=== PATIENT | female | born 1980 | race American Indian/Alaskan Native ===

== ENCOUNTER → 2017-12-21 | Outpatient (CLI) | payer OTHER ==
[~2017-12-21] MED LIST: GASTROGRAFIN SOLUTION 30ML (Q9963) As Ordered; ISOVUE-370 76% 100ML VIAL (Q9967) As Ordered
== END ==
LOC: M RAD 16:50
DX: R10.9 Unspecified abdominal pain (principal)

== ENCOUNTER → 2018-03-05 | Outpatient (CLI) | payer OTHER ==
[2018-03-05 20:02] LABS: ALBUMIN 3.8 GM/DL (3.2-5.2); ALBUMIN/GLOBULIN RATIO 1.12 (1.00-1.93); ALKALINE PHOSPHATASE 69 U/L (45-117); ALT/SGPT 22 U/L (12-78); AST/SGOT 10 U/L (7-37); BILIRUBIN,DIRECT < 0.1 MG/DL (0.0-0.2); BILIRUBIN,TOTAL 0.3 MG/DL (0.2-1.0); C REACTIVE PROTEIN QUANTITATIV < 0.30 MG/DL (0.00-0.30); TOTAL PROTEIN 7.2 GM/DL (6.4-8.2)
[2018-03-08 09:40] LABS: CONTROL LINE HPYORI INT CTR LINE PRESENT; H PYLORI QUALITATIVE IgG DETECTED (NEGATIVE)
[2018-03-11 10:16] LABS: ANCA-ATYPICAL <1:20 titer (Neg:<1:20); ANTI-SACCHAROMYCES CEREV. IgA <20.0 Units (0.0-24.9); ANTI-SACCHAROMYCES CEREV. IgG <20.0 Units (0.0-24.9); CYTOPLASMIC NEUTROP AB ANCA-C <1:20 titer (Neg:<1:20); H PYLORI SERUM QUANT IGM <9.0 units (0.0-8.9); IGASUB3 60.8 mg/dL (13.4-97.9); IgA SERUM (part of Subclasses) 245 mg/dL (87-352); PERINUCLEAR AB ANCA-P <1:20 titer (Neg:<1:20); TISSUE TRANSGLUTAMINASE IgA <2 U/mL (0-3)
== END ==
LOC: M LAB 16:47
DX: K59.00 Constipation, unspecified (principal)
CPT/HCPCS: 80076

== ENCOUNTER 2018-04-04 08:38 | Emergency (ER) | payer OTHER ==
[2018-04-04] MEDS: FAMOTIDINE 20 MG TAB PO (09:01)
[2018-04-04] MEDS: predniSONE 20 MG TAB PO (09:01)
== END 2018-04-04 09:44 | disposition home or self-care (01) ==
LOC: M ED 08:38
DX: J02.8 Acute pharyngitis due to other specified organisms (principal); M54.2 Cervicalgia; Z79.899 Other long term (current) drug therapy
CPT/HCPCS: 87880

== ENCOUNTER → 2021-03-07 | Outpatient (CLI) | payer OTHER ==
[~2021-03-07] MED LIST changes: +DICL75TA PO; +DIPH25CA32 PO; -GASTROGRAFIN SOLUTION 30ML (Q9963) As Ordered; -ISOVUE-370 76% 100ML VIAL (Q9967) As Ordered; +MAGICMW SS
--- NOTE | 2021-03-07 18:35 | REP ---
INDICATION: ABDOMINAL PAIN COMPARISON: None. TECHNIQUE: Supine view of the abdomen and pelvis. FINDINGS: Bowel gas pattern is nonspecific and without obstruction or perforation. No organomegaly. No abnormal calcifications. Skeletal structures intact. IMPRESSION: Nonspecific bowel gas pattern. Question fecal stasis and constipation. <Electronically signed by Stepan Roblero > 03/07/21 0351
== END ==
LOC: M RAD 17:25
PROVIDERS: ATTEND Physician Assistant
DX: R10.9 Unspecified abdominal pain (principal)